=== PATIENT | male | born 1950 | race Caucasian/White ===

== ENCOUNTER → 2017-09-05 | Outpatient (CLI) | payer MEDICARE, BC ==
[~2017-09-05] MED LIST: IOHEXOL 240 MG/ML 50ML VIAL. ONE; IOHEXOL 240 MG/ML 50ML VIAL. PO ONE; IOHEXOL 300 MG/ML 75 ML VIAL. IV ONE
--- NOTE | 2017-09-05 11:30 | RAD ---
CT abdomen and pelvis with contrast 09/05/2017 Clinical indication: Lower abdominal pain for 2 days, bloating. COMPARISON: None. TECHNIQUE: Multiple CT images of the abdomen and pelvis were obtained following the intravenous and ministration of 75 mL Omnipaque 300. *One or more of the following individualized dose reduction techniques were utilized for this examination: 1. Automated exposure control. 2. Adjustment of the mA and/or kV according to patient size. 3. Use of iterative reconstruction technique. FINDINGS: Heart size is normal. Visualized lung bases are clear. Liver, spleen, pancreas and kidneys are unremarkable apart from a 0.3 cm hypodensity in the posterior inferior pole the right kidney which is too small to definitively characterize. There are 3 fat-containing right adrenal gland lesions, the largest measuring 1.5 cm series 06/2016. There are 2 left adrenal gland fatty lesions, largest measuring 0.9 cm series 2/image 16. Abdominal aorta is normal in caliber with moderate aortoiliac calcified atheromatous disease. Small and large bowel loops are normal in caliber without obstruction. Appendix is normal in appearance. Mild distal descending and sigmoid diverticulosis with pericolonic stranding, edema and extramural gas adjacent to the the junction of the descending and sigmoid colon series 2/image 49. No pericolonic loculated gas/fluid collection. No retroperitoneal or mesenteric lymphadenopathy. Urinary bladder, prostate seminal vesicles are unremarkable. No iliac or inguinal lymphadenopathy. Multilevel lower thoracic and lumbar spondylosis. There are no destructive osseous lesions. IMPRESSION: 1. Acute distal colonic diverticulitis at the junction of the descending and sigmoid colon. There is minimal pericolonic extramural gas without loculated gas/fluid collection. 2. Bilateral adrenal myelolipomas. Electronically signed by: Sea Chong MD (09/05/2017 11:27 AM) [id number]
== END | disposition home or self-care (01) ==
LOC: PMG 08:40
PROVIDERS: ATTEND Physician Assistant Medical
DX: K57.32 Diverticulitis of large intestine without perforation or abscess without bleeding (principal); D17.79 Benign lipomatous neoplasm of other sites; M47.895 Other spondylosis, thoracolumbar region; I70.0 Atherosclerosis of aorta; E27.8 Other specified disorders of adrenal gland; E11.9 Type 2 diabetes mellitus without complications; I11.0 Hypertensive heart disease with heart failure; I50.9 Heart failure, unspecified
CPT/HCPCS: 74177; Q9966; Q9967

== ENCOUNTER 2019-03-13 18:17 | Emergency (ER) | payer MEDICARE, BC ==
[~2019-03-13] VITALS: Ht 182.9 cm; Wt 120.2 kg
--- NOTE | 2019-03-13 19:36 | PHYS DOC ---
Past History Past Medical History: CHF, Diabetes, High Cholesterol, Hypertension, Hypothyroid Past Surgical History: No Surgical History Smoking: Less than 1pk/day Additional Smoking Information: 1.5 PPD Alcohol Use: None Drug Use: None Adult General Chief Complaint Chief Complaint: LOWER EXTREMITY SWELLING [facility] Patient is a 69-year-old male presents with right foot pain and swelling. This started in the past 36 hours. No improvement with hydrogen peroxide cleaning or antibiotic ointment administration. Patient removed his great toenail approximately 2 weeks ago and has been home treating that area. He feels that the pain and swelling started from there. Patient is diabetic. He reports that his blood sugars been doing well, 135 was his level yesterday morning. Denies any nausea or vomiting. Denies any polyuria, polyphagia, or polydipsia. Denies any fever or chills. Increased pain with walking on the foot.[] Review of Systems Review of Systems Constitutional: Denies fever or chills [] Eyes: Denies change in visual acuity, redness, or eye pain [] HENT: Denies nasal congestion or sore throat [] Respiratory: Denies cough or shortness of breath [] Cardiovascular: No additional information not addressed in HPI [] GI: Denies abdominal pain, nausea, vomiting, bloody stools or diarrhea [] : Denies dysuria or hematuria [] Musculoskeletal: Denies back pain, see history of present illness[] Integument: Denies rash or skin lesions [] Neurologic: Denies headache, focal weakness or sensory changes [] Endocrine: Denies polyuria or polydipsia [] All other systems were reviewed and found to be within normal limits, except as documented in this note. Allergies Allergies Allergies Coded Allergies Type Severity Reaction Last Updated Verified hydralazine Allergy Intermediate Rash 12/02/13 Yes isosorbide Allergy Intermediate Rash 12/02/13 Yes Physical Exam Physical Exam Constitutional: Well developed, well nourished, no acute distress, non-toxic appearance. [] HENT: Normocephalic, atraumatic, bilateral external ears normal, oropharynx moist, no oral exudates, nose normal. [] Eyes: PERRLA, EOMI, conjunctiva normal, no discharge. [] Neck: Normal range of motion, no tenderness, supple, no stridor. [] Cardiovascular:Heart rate regular rhythm, no murmur [] Lungs & Thorax: Bilateral breath sounds clear to auscultation [] Abdomen: Bowel sounds normal, soft, no tenderness, no masses, no pulsatile masses. [] Skin: Warm, dry, no erythema, no rash. [] Back: No tenderness, no CVA tenderness. [] Extremities: Right foot: There is dried blood around the nail bed of the great toe. There is diffuse swelling for the entire foot. No specific focus of tenderness. Patient is symmetrically distally neurovascularly intact. No specific bony tenderness with axial loading. The other 3 extremities show: No tenderness, no cyanosis, no clubbing, ROM intact, no edema. [] Neurologic: Alert and oriented X 3, normal motor function, normal sensory function, no focal deficits noted. [] Psychologic: Affect normal, judgement normal, mood normal. [] Current Patient Data Vital Signs Vital Signs Date Time Temp Pulse Resp B/P (MAP) Pulse Ox O2 Delivery O2 Flow Rate FiO2 03/13/19 19:06 98.4 78 18 94 Room Air EKG EKG [] Radiology/Procedures Radiology/Procedures PROCEDURE: FOOT RIGHT 3V Three-view right foot dated 03/13/2019. No comparison available. Clinical data indication: Pain and swelling after great toenail removal. FINDINGS: 3 views of right foot show normal bony alignment. No displaced fracture. There is soft tissue swelling of the great toe. Mild degenerative changes of the first MTP joint no periostitis or bone destruction. IMPRESSION: Soft tissue swelling with no evidence of underlying acute bony abnormality. Findings [] Course & Med Decision Making Course & Med Decision Making Pertinent Labs and Imaging studies reviewed. (See chart for details) ED course: Patient arrived, was placed in bed, and tolerated exam well. X-rays were obtained with any consultations. After return of laboratory and imaging findings, these were discussed with the patient and family voiced understanding. All questions were answered. He was discharged in improved condition. Medical decision making: Patient appears to have a infection of his foot, there is no evidence of systemic toxicity. No evidence of DKA. No evidence of oral intake intolerance. Will attempt outpatient treatment with oral medication.[] Dragon Disclaimer Dragon Disclaimer This electronic medical record was generated, in whole or in part, using a voice recognition dictation system. Departure Departure: Impression: Primary Impression: Right foot infection Disposition: HOME, SELF-CARE Condition: IMPROVED Referrals: RAVI LOPEZ (PCP) Follow-up in 2 days Patient Instructions: Cellulitis Additional Instructions: Follow-up with your regular doctor in 2 days for a wound check. Take the medication as prescribed. Return to the ER if worsening pain, weakness, fasting blood sugars running over 400, fever of more than 101, or any other concerns. Scripts Hydrocodone Bit/Acetaminophen (NORCO 5-325 TABLET) 1 Each Tablet 1 TAB PO Q4-6HRS for severe pain, #20 TAB Prov: CATRACHITA CHISHOLM DO 03/13/19 Meloxicam (MELOXICAM) 7.5 Mg Tablet 7.5 MG PO DAILY for PAIN, #20 TAB Prov: CATRACHITA CHISHOLM DO 03/13/19 Sulfamethoxazole/Trimethoprim (BACTRIM DS TABLET) 1 Each Tablet 1 TAB PO BID for cellulitis, #20 TAB Prov: CATRACHITA CHISHOLM DO 03/13/19 CATRACHITA CHISHOLM DO Mar 13, 2019 19:36
[2019-03-13 19:46] LABS: BASO % 0 % (0-3); EOS # 0.2 x10^3/uL (0.0-0.7); EOS % 2 % (0-3); HEMATOCRIT 42.1 % (39.0-53.0); HEMOGLOBIN 14.6 g/dL (13.0-17.5); LYMPH # 1.5 x10^3/uL (1.0-4.8); LYMPH % 17 % (24-48); MEAN CORPUSCULAR HEMOGLOBIN 33 pg (25-35); MEAN CORPUSCULAR HGB CONC 35 g/dL (31-37); MEAN CORPUSCULAR VOLUME 95 fL (79-100); MONO # 0.9 x10^3/uL (0.0-1.1); MONO % 10 % (0-9); NEUT # 6.3 x10^3uL (1.8-7.7); NEUT % 71 % (31-73); PLATELET COUNT 177 x10^3/uL (140-400); RED BLOOD COUNT 4.44 x10^6/uL (4.30-5.70); WHITE BLOOD COUNT 8.8 x10^3/uL (4.0-11.0)
[2019-03-13] MEDS ORDERED: IV NORMAL SALINE 500ML 500 ML IV ONE (20:00)
[2019-03-13 20:01] LABS: ALBUMIN 3.5 g/dL (3.4-5.0); ALBUMIN/GLOBULIN RATIO 0.9 (1.0-1.7); CREATININE 1.3 mg/dL (0.7-1.3); GFR 55.1; POTASSIUM 3.8 mmol/L (3.5-5.1); TOTAL BILIRUBIN 0.5 mg/dL (0.2-1.0); TOTAL PROTEIN 7.5 g/dL (6.4-8.2)
[2019-03-13] MEDS ORDERED: SMZ/TMP 800/160MG TABLET. PO ONE (20:15)
--- NOTE | 2019-03-13 20:23 | RAD ---
Three-view right foot dated 03/13/2019. No comparison available. Clinical data indication: Pain and swelling after great toenail removal. FINDINGS: 3 views of right foot show normal bony alignment. No displaced fracture. There is soft tissue swelling of the great toe. Mild degenerative changes of the first MTP joint no periostitis or bone destruction. IMPRESSION: Soft tissue swelling with no evidence of underlying acute bony abnormality. Findings Electronically signed by: Mukesh Reed MD (03/13/2019 8:20 PM) [facility]
[2019-03-13 20:30] VITALS: BP 109/48
[2019-03-13] MEDS ORDERED: SULF1TAB24 PO (20:30)
[2019-03-13] MEDS ORDERED: HYDR-3165 PO (20:30)
[2019-03-13] MEDS ORDERED: MELO7.5T29 PO (20:30)
== END 2019-03-13 20:42 | disposition home or self-care (01) ==
LOC: ER 18:17
DX: L08.89 Other specified local infections of the skin and subcutaneous tissue (principal); I11.0 Hypertensive heart disease with heart failure; I50.9 Heart failure, unspecified; E11.9 Type 2 diabetes mellitus without complications; E78.00 Pure hypercholesterolemia, unspecified; E03.9 Hypothyroidism, unspecified; F17.200 Nicotine dependence, unspecified, uncomplicated; Z88.8 Allergy status to other drugs, medicaments and biological substances
CPT/HCPCS: 36415; 73630; 80053; 85025; 87040; 99285; J7040

== ENCOUNTER → 2020-02-06 | Outpatient (CLI) | payer MEDICARE, BC ==
[~2020-02-06] MED LIST changes: +HYDR-3165 PO; -IOHEXOL 240 MG/ML 50ML VIAL. ONE; -IOHEXOL 240 MG/ML 50ML VIAL. PO ONE; -IOHEXOL 300 MG/ML 75 ML VIAL. IV ONE; +MELO7.5T29 PO; +SULF1TAB24 PO
--- NOTE | 2020-02-06 13:55 | RAD ---
INDICATION: Reason: RT SIDE PAIN ON AND OFF X 6 MONTHS, WORSE TODAY / Spl. Instructions: / History: COMPARISON: September 2017 TECHNIQUE: Axial CT images obtained through the abdomen and pelvis without contrast. One or more of the following individualized dose reduction techniques were utilized for this examination: 1. Automated exposure control; 2. Adjustment of the mA and/or kV according to patient size; 3. Use of iterative reconstruction technique. FINDINGS: Small pericardial fluid. Severe calcific atherosclerosis. Fat-containing inguinal hernias. Liver appears enlarged. No peripancreatic fluid collection. Repeat demonstration of suspected tiny splenic lesion which is too small to characterize. Mixed density left adrenal mass again seen with fat within measuring up to 17 mm could be from mild low lipoma. There is also repeat demonstration of a mixed density fat-containing mass of the right adrenal measuring up to approximately 55 x 16 mm which could be from mild low lipoma. No hydronephrosis. Urinary bladder is partially distended. Minimal indistinctness the fat anterior to the urinary bladder is again seen. 2 mm calcification at the right kidney. Could be from nonobstructive stone. Prostate calcification. The appendix is distended with debris and air without adjacent inflammatory changes. Small fat-containing umbilical hernia. Scoliotic curvature the spine with multilevel central canal and neural foraminal stenosis. There is a couple of mildly prominent loops of small bowel in the left-sided the abdomen without a high-grade transition point to suggest obstruction. IMPRESSION: * No evidence of appendicitis, hydronephrosis or bowel obstruction. * Severe calcific atherosclerosis. * Bilateral adrenal myelolipoma . * Colonic diverticulosis * Severe degenerative changes of spine Electronically signed by: Shaun Chavez MD (02/06/2020 1:52 PM) [id number]
== END | disposition home or self-care (01) ==
LOC: PMG 10:04
PROVIDERS: ATTEND Physician Assistant Medical
DX: K40.90 Unilateral inguinal hernia, without obstruction or gangrene, not specified as recurrent (principal); I31.3 Pericardial effusion (noninflammatory); I25.10 Atherosclerotic heart disease of native coronary artery without angina pectoris; R16.0 Hepatomegaly, not elsewhere classified; N28.89 Other specified disorders of kidney and ureter; N20.0 Calculus of kidney; D17.9 Benign lipomatous neoplasm, unspecified; K57.30 Diverticulosis of large intestine without perforation or abscess without bleeding; M47.819 Spondylosis without myelopathy or radiculopathy, site unspecified
CPT/HCPCS: 74176